=== PATIENT | male | born 1995 | race Caucasian/White ===

== ENCOUNTER 2016-09-27 10:07 | Emergency (ER) | payer SELFPAY ==
[2016-09-27 10:20] VITALS: BP 146/95; PULSE 66; RESP 18; TEMP 97.9; O2SAT 94
--- NOTE | 2016-09-27 11:12 | UCPHY ---
H & P Time Seen by Provider: 09/27/16 10:18 Patient Type: New HPI/ROS: HPI Left big toe infection. 21-year-old male by private vehicle. He has had issues for about 2 years now involving a left medial aspect ingrown toenail involving the big toe. He reports that he has seen doctors regarding this problem in the past. He has been prescribed antibiotics but nobody has wanted to remove the nail which is the source of the infection. He reports that he saw his doctor about this about a week ago and again the toenail was not removed he was again placed on an antibiotic and continues to worsen. No fever. No history of acute traumatic injury. No other complaint. ROS: Constitutional: No fever, no chills. As above. Musculoskeletal: As above. Skin: As above. Neurological: No focal weakness or altered sensation. Past medical history: No past medical history. He is allergic to penicillins. Social history: Here by himself. Physical Exam: General Appearance: Alert, no distress. This patient is responding to questions appropriately and in full sentences. This patient appears well- hydrated and well-nourished. Eyes: Pupils equal and round no pallor or injection. No lid edema, erythema or injection. Left big toe exam: Consistent with a ingrown medial aspect toenail with proud flesh, induration and some serosanguineous drainage from the paronychial area on the medial aspect of the nail fold. The left big toe is neurovascularly intact. There is no proximal edema or erythema to indicate a spreading infection. Neurological: Motor sensory function is grossly intact. Cranial nerves are normal. Gait is normal. Skin: Warm and dry, no rashes. Musculoskeletal: Neck is supple and nontender. No lymphadenopathy. Extremities are symmetrical. All joints range without pain or impingement. Psychiatric: No agitation. No depression. Database: EKG: Imaging: Procedures: Removal of left big toe nail: Indication ingrown toenail with localized inflammation and infection. Digital block to left big toe with 0.5% bupivacaine without epinephrine. Excellent anesthesia obtained. The medial aspect of the nail was removed from the nail bed using a pair of iris scissors. The 1/4 medial aspect of the nail was then removed without complication using gentle traction. The procedure was tolerated well and there were no complications. Emergency department course: After above noted procedure, patient was placed on Keflex. He was given 500 mg in the urgent care. He will be prescribed this medications, 4 times daily for 5 days. A postop shoe was also given to him for comfort and the left big toe was placed in a proper dressing. He has had this medication in the past without any allergic reaction or other reaction to it. I discussed warm soaks in Epsom salt solution 4-6 times daily for 10-15 minutes at a time. Elevation of the toe and follow up with his primary care physician for re-evaluation. Return to Urgent Care precautions reviewed. All of his questions were answered. He was discharged in good condition. Differential Diagnosis: The differential diagnosis on this patient includes but is not limited to ingrown left big toenail. Retained foreign body, osteomyelitis, advancing cellulitis unlikely. This represents a partial list of diagnoses considered. These considerations are based on history, physical exam, past history and reassessment. Smoking Status: Current some day smoker Constitutional: Initial Vital Signs Temperature (C) 36.6 C 09/27/16 10:18 Heart Rate 66 09/27/16 10:18 Respiratory Rate 18 09/27/16 10:18 Blood Pressure 146/95 H 09/27/16 10:18 O2 Sat (%) 94 09/27/16 10:18 O2 Delivery Mode Room Air Allergies/Adverse Reactions: Penicillins Allergy (Intermediate, Verified 09/27/16 10:16) Home Medications: Medication Instructions Recorded Cephalexin [Keflex (*)] 500 mg PO Q6 7 Days 09/27/16 MDM/Departure - Depart Disposition: Home, Routine, Self-Care Clinical Impression: Ingrown left big toenail Condition: Good Instructions: Ingrown Nail (ED) Additional Instructions: Read and follow provided instructions. Follow-up with your primary care physician in 2-3 days for re-evaluation. Take medication as prescribed through entire course of treatment. Ibuprofen dosin mg every 6 hours with meals for the next 3 days only. Warm Epson salt solution soaks 4-6 times daily for 10-15 minutes at a time for 2 days. Return to the emergency department for worsening pain, swelling, drainage of pus , discoloration or other serious concerns. Prescriptions: Cephalexin [Keflex (*)] 500 mg PO Q6 7 Days Referrals: Cuco Farrell DO [Primary Care Provider] - As per Instructions - PQRS PQRS Measurement: Not applicable.
[2016-09-27] MEDS ORDERED: CEPHALEXIN 500 MG CAP PO ONE (11:43)
== END 2016-09-27 11:54 | disposition home or self-care (01) ==
LOC: CED 10:07
PROC: 0HBRXZZ Excision of Toe Nail, External Approach (ICD-10-PCS; principal; 2016-09-27)
DX: L60.0 Ingrowing nail (principal); F17.200 Nicotine dependence, unspecified, uncomplicated
CPT/HCPCS: 11730-PO; 99203-PO; G0463-PO